=== PATIENT | female | born 1950 | race Caucasian/White ===

== ENCOUNTER 2025-06-15 06:46 | Day surgery (SDC) | payer OTHER ==
[2025-06-09 09:41] LABS: BASO % 0.6 % (0.1-1.2); EOS # 0.24 (0.04-0.54); EOS % 2.7 % (0.7-7.0); LYMPH # 1.82 (1.18-3.74); LYMPH % 20.6 % (19.3-53.1); MEAN PLATELET VOLUME 9.70 fl (9.4-12.4); MONO # 0.74 (0.24-0.82); MONO % 8.4 % (4.7-12.5); NEUT # 5.95 (1.56-6.13); NEUT % 67.4 % (34.0-71.1); RED CELL DISTRIBUTION WIDTH 14.3 % (11.6-14.4)
[2025-06-09 09:49] VITALS: BP 125/78
[2025-06-09 10:14] LABS: INR 1.0
[2025-06-09 10:29] LABS: URINE APPEARANCE Clear; URINE BILIRRUBIN Negative (NEGATIVE); URINE BLOOD Negative; URINE COLOR Yellow; URINE GLUCOSE Negative (NEGATIVE); URINE KETONE Negative (NEGATIVE); URINE LEUKOCYTE Trace; URINE NITRATE Negative; URINE PROTEIN Negative (NEGATIVE); URINE UROBILINOGEN 0.2 E.U./dl
[2025-06-09 10:33] LABS: URINE BACTERIA 950.2 uL (0.0-1933); URINE EPITHELIAL CELLS 25.9 uL (0.0-38.8); URINE RBC 10.8 uL (0.0-20.8); URINE WBC 15.6 uL (0.0-23.2)
[2025-06-09 10:47] LABS: URINE CAST 0.00 uL (0.0-1.40)
[2025-06-09 11:01] LABS: ALT/SGPT 27.0 U/L (12-78); AST/SGOT 16.0 U/L (15-37); BILIRUBIN TOTAL 0.32 mg/dL (0.3-1.2); BUN CREA RATIO 22.0 (7.0-25.0); CREATININE SERUM 0.68 mg/dL (0.55-1.02); GFR 83.9; GLOBULINA 3.2 G/DL (2.4-3.5); GLUCOSE FASTING 100.0 mg/dL (65-100); OSMOLALITY SERUM 282.0 MOSM/KG (275-295)
[~2025-06-15] VITALS: Ht 160 cm; Wt 90.7 kg
[~2025-06-15 06:46] MED LIST: HYDRODIURIL12.5 MG PO; NORVASC2.5 MG PO; SYNTHROID50 MCG PO; TOPROL XL50 M1 PO; ZESTRIL40 M1 PO
[2025-06-15] MEDS ORDERED: CIPROFLOXACIN IN 5 % DEXTROSE 400 MG/200 ML PIGGYBAG IV ONE (13:15)
[2025-06-15] MEDS ORDERED: MORPHINE SULFATE 4 MG/ML VIAL IV ONE ×2 (14:25→14:55)
== END 2025-06-15 18:05 | disposition home or self-care (01) ==
LOC: CIR.AMB 06:46
PROVIDERS: ATTEND Surgery
DX: K43.2 Incisional hernia without obstruction or gangrene (principal); K43.9 Ventral hernia without obstruction or gangrene; Z88.0 Allergy status to penicillin; Z88.2 Allergy status to sulfonamides
CPT/HCPCS: 49594; C1781